=== PATIENT | male | born 1965 | race Caucasian/White ===

== ENCOUNTER 2019-03-13 06:39 | Emergency (ER) | payer OTHER ==
[~2019-03-13] VITALS: Ht 188 cm; Wt 77.1 kg
[2019-03-13 06:45] VITALS: BP_SYST 122
--- NOTE | 2019-03-13 06:45 | NUR ---
Patient to ER bed 6 to gown for evaluation. Side rails up. Report given to Rosa Elena ABEL.
--- NOTE | 2019-03-13 06:48 | NUR ---
Pt complains of having pain/burning upon urination for the past 3 days. Pt states he noticed some blood in the urine. Pt denies fever. Per pt, he has hx of UTI and bladder cancer. No other injuries/complaints per patient or noted.
--- NOTE | 2019-03-13 06:49 | NUR ---
Otoniel parra in ED - 03/13/19 at 0650 by [email or web address] EDY De Leon at bedside examining patient.
--- NOTE | 2019-03-13 06:59 | NUR ---
ER at bedside examining patient.
--- NOTE | 2019-03-13 07:07 | NUR ---
Report given to PAGE Bolton. All care endorsed.
--- NOTE | 2019-03-13 07:11 | NUR ---
Patient alert and oriented, aske dpatient to provide urine sample per md order. Patient stated he did need have the urge to urinate, he requested water. Water given.
[2019-03-13 07:27] LABS: BILIRUBIN,URINE NEGATIVE (NEGATIVE); BLOOD, URINE NEGATIVE (NEGATIVE); CLARITY/URINE SL HAZY (CLEAR); COLOR,URINE YELLOW (YELLOW); GLUCOSE,URINE NEGATIVE (NEGATIVE); KETONES,URINE NEGATIVE (NEGATIVE); LEUKOCYTE ESTERASE ,URINE 1+ (NEGATIVE); NITRITE, URINE POSITIVE (NEGATIVE); PROTEIN URINE NEGATIVE (NEGATIVE); UROBILINOGEN,URINE 0.2 (0.2-1.0)
[2019-03-13 07:34] LABS: RBC,URINE 0-3 /HPF (0-3); WBC,URINE 20-50 /HPF (0-3)
[2019-03-13 07:35] LABS: BACTERIA,URINE MANY /HPF (None Seen)
[2019-03-13] MEDS ORDERED: cefTRIAXone 1 GM in LIDOCAINE 1%, 20 ML MDV 2.1 ML IM ONE (07:45)
[2019-03-13 08:01] VITALS: BP_SYST 122
--- NOTE | 2019-03-13 08:01 | NUR ---
Patient given written and verbal discharge instructions and verbalizes understanding. ER MD discussed with patient the results and treatment provided. Patient in stable condition. ID arm band removed. IV catheter removed intact and dressing applied, no active bleeding. Rx of Levaquin given. Patient educated on pain management and to follow up with PMD. Pain Scale 2/10 . Opportunity for questions provided and answered. Medication side effect fact sheet provided.
== END 2019-03-13 08:01 | disposition home or self-care (01) ==
LOC: SED 06:39
DX: N39.0 Urinary tract infection, site not specified (principal)
CPT/HCPCS: 81000; 87086; 87186; 96372; 99283; J0696; J2001